=== PATIENT | female | born 1985 | race African-American/Black ===

== ENCOUNTER 2016-07-31 18:16 | Emergency (ER) | payer SELFPAY ==
[~2016-07-31] VITALS: Ht 175.3 cm; Wt 100.0 kg
[~2016-07-31 18:16] MED LIST: BACT800T5 PO; CEPH500C3 PO; IBUP800T23 PO
[2016-07-31 18:17] VITALS: BP 149/85; PULSE 100; RESP 20; TEMP 98.3; O2SAT 100
--- NOTE | 2016-07-31 19:22 | PD ---
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 Patient states that it stopped 2 days ago but began again today. She states she is only changing her pad 2-3 times a day but states that it leaks and it is heavy absorbent. Next abdominal pain or cramping. No vaginal discharge. Denies any chance of . No recent illnesses, fever, chills. No other symptoms to report. PFSH Past Medical History Medical History: Denies Significant Hx Diminished Hearing: No ?: Not LMP: [id number] Past Surgical History Surgical History: No Previous Surgery Social History Alcohol Use: Yes (occ) Tobacco Use: No Substance Use: No Allergies-Medications (Allergen,Severity, Reaction): Coded Allergies: No Known Allergies (Unverified , 07/31/16) Reported Meds & Prescriptions Reported Meds & Active Scripts Active No Active Prescriptions or Reported Medications Review of Systems Except as stated in HPI: all other systems reviewed are Neg Physical Exam Narrative GENERAL: Well-nourished female patient, in no acute distress SKIN: Warm and dry. HEAD: Atraumatic. Normocephalic. EYES: Pupils equal and round. No scleral icterus. No injection or drainage. ENT: No nasal bleeding or discharge. Mucous membranes pink and moist. NECK: Trachea midline. No JVD. CARDIOVASCULAR: Regular rate and rhythm. No murmur appreciated. RESPIRATORY: No accessory muscle use. Clear to auscultation. Breath sounds equal bilaterally. GASTROINTESTINAL: Abdomen soft, non-tender, nondistended. Hepatic and splenic margins not palpable. GENITOURINARY: Normal external genitalia without lesions or erythema. Vaginal vault with dark brown-red drainage. Cervical os was closed without drainage. No cervical motion tenderness. Uterus nontender and nonenlarged. Bilateral adnexa nontender without masses. MUSCULOSKELETAL: No obvious deformities. No clubbing. No cyanosis. No edema. NEUROLOGICAL: Awake and alert. No obvious cranial nerve deficits. Motor grossly within normal limits. Normal speech. PSYCHIATRIC: Appropriate mood and affect; insight and judgment normal. Data Data Last Documented VS Vital Signs Date Time Temp Pulse Resp B/P Pulse Ox O2 Delivery O2 Flow Rate FiO2 07/31/16 18:17 98.3 100 20 149/85 100 Room Air Orders Urinalysis - C+S If Indicated (07/31/16 19:35) Gc And Chlamydia Pcr (07/31/16 19:35) Complete Blood Count With Diff (07/31/16 19:35) Basic Metabolic Panel (Bmp) (07/31/16 19:35) Coag Profile (07/31/16 19:35) Wet Prep Profile (07/31/16 19:35) Labs Laboratory Tests Test 07/31/16 07/31/16 19:55 20:15 White Blood Count 8.1 TH/MM3 Red Blood Count 4.69 MIL/MM3 Hemoglobin 13.5 GM/DL Hematocrit 39.8 % Mean Corpuscular Volume 84.7 FL Mean Corpuscular Hemoglobin 28.8 PG Mean Corpuscular Hemoglobin 34.0 % Concent Red Cell Distribution Width 13.1 % Platelet Count 302 TH/MM3 Mean Platelet Volume 8.5 FL Neutrophils (%) (Auto) 56.9 % Lymphocytes (%) (Auto) 34.2 % Monocytes (%) (Auto) 7.2 % Eosinophils (%) (Auto) 1.1 % Basophils (%) (Auto) 0.6 % Neutrophils # (Auto) 4.6 TH/MM3 Lymphocytes # (Auto) 2.8 TH/MM3 Monocytes # (Auto) 0.6 TH/MM3 Eosinophils # (Auto) 0.1 TH/MM3 Basophils # (Auto) 0.0 TH/MM3 CBC Comment DIFF FINAL Differential Comment Prothrombin Time 11.3 SEC Prothromb Time International 1.0 RATIO Ratio Activated Partial 28.0 SEC Thromboplast Time Sodium Level 139 MEQ/L Potassium Level 3.5 MEQ/L Chloride Level 104 MEQ/L Carbon Dioxide Level 28.2 MEQ/L Anion Gap 7 MEQ/L Blood Urea Nitrogen 10 MG/DL Creatinine 0.92 MG/DL Estimat Glomerular Filtration 85 ML/MIN Rate Random Glucose 83 MG/DL Calcium Level 8.9 MG/DL Urine Color DARK-YELLOW Urine Turbidity TURBID Urine pH 5.5 Urine Specific [place] 1.031 Urine Protein 100 mg/dL Urine Glucose (UA) NEG mg/dL Urine Ketones NEG mg/dL Urine Occult Blood LARGE Urine Nitrite NEG Urine Bilirubin NEG Urine Urobilinogen LESS THAN 2.0 MG/DL Urine Leukocyte Esterase NEG Urine RBC /hpf Urine Squamous Epithelial 13 /hpf Cells Urine Mucus FEW /lpf Microscopic Urinalysis Comment CULT NOT INDICATED Clue Cells (Wet Prep) NONE SEEN Vaginal Trichomonas (Wet Prep) NONE SEEN Vaginal Yeast (Wet Prep) NONE SEEN MDM Medical Decision Making Medical Screen Exam Complete: Yes Emergency Medical Condition: Yes Medical Record Reviewed: Yes Differential Diagnosis Dysmenorrhea versus menorrhagia versus anemia versus symptomatic anemia versus electrolyte abnormality versus hypocoagulability Narrative Course 31-year-old female presents to the emergency for evaluation of vaginal bleeding. Patient appears well and without distress. Her vital signs are stable. She does have lead in the vaginal vault with no CMT or pelvic pain. CBC and BMP are without acute concern. Wet prep is negative. Urinalysis is with the 100 proteinuria, large occult blood, innumerable RBC, mucus. This is likely from her vaginal bleeding. Patient is encouraged to seek PONY ROUGHER evaluation. She agrees to return immediately with any acute worsening of symptoms. 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
[2016-07-31 20:42] LABS: BLOOD, URINE LARGE (NEG); COMMENT (UR) CULT NOT INDICATED; CULTURE IF INDICATED CULT NOT INDICATED; GLUCOSE,URINE NEG (NEG); KETONE, URINE NEG (NEG); MUCUS URINE FEW /lpf (OCC); NITRITE,URINE NEG (NEG); PH, URINE 5.5 (5.0-8.5); SQUAMOUS EPITHELIAL CELL URINE 13 /hpf (0-5)
[2016-07-31 20:42] LABS: AUTOMATED NEUTROPHIL # 4.6 TH/MM3 (1.8-7.7); BASOPHIL % 0.6 % (0.0-2.0); EOSINOPHIL # 0.1 TH/MM3 (0-0.4); EOSINOPHIL % 1.1 % (0.0-4.0); HEMATOCRIT 39.8 % (35.0-46.0); HEMO FLAGS DIFF FINAL; LYMPH % 34.2 % (9.0-44.0); LYMPHOCYTE # 2.8 TH/MM3 (1.0-4.8); MEAN CELL VOLUME 84.7 FL (80.0-100.0); MEAN CORPUSCULAR HEMOGLOBIN 28.8 PG (27.0-34.0); MONO % 7.2 % (0.0-8.0); NEUT % 56.9 % (16.0-70.0); PLATELET COUNT 302 TH/MM3 (150-450); PROTHROMBIN TIME - PATIENT 11.3 SEC (9.8-11.6); RED BLOOD COUNT 4.69 MIL/MM3 (4.00-5.30); RED CELL DISTRIBUTION WIDTH 13.1 % (11.6-17.2); WHITE BLOOD COUNT 8.1 TH/MM3 (4.0-11.0)
[2016-07-31 20:45] LABS: URINE COLOR DARK-YELLOW (YELLW/STRAW)
[2016-07-31 20:56] LABS: BICARBONATE 28.2 MEQ/L (21.0-32.0); POTASSIUM 3.5 MEQ/L (3.5-5.1)
[2016-07-31 23:03] LABS: CHLAMYDIA PCR NOT DETECTED (NOT DETECT); NEISSERIA PCR NOT DETECTED (NOT DETECT)
== END 2016-07-31 22:19 | disposition home or self-care (01) ==
LOC: NEPB 18:16
DX: N93.9 Abnormal uterine and vaginal bleeding, unspecified (principal)
CPT/HCPCS: 80048; 81001; 85025; 85610; 85730; 87210; 87491; 87591; 99283

== ENCOUNTER 2016-08-24 12:11 | Emergency (ER) | payer SELFPAY ==
[~2016-08-24] VITALS: Ht 175.3 cm; Wt 119.7 kg
[2016-08-24 12:13] VITALS: BP 142/89; PULSE 104; RESP 20; TEMP 97.7; O2SAT 99
[2016-08-24] MEDS ORDERED: IBUP800T23 PO (13:57)
[2016-08-24] MEDS ORDERED: CEPH-460 PO (13:57)
[2016-08-24] MEDS ORDERED: BACT800T5 PO (13:57)
--- NOTE | 2016-08-24 13:58 | PD ---
HPI Chief Complaint: Skin Problem Time Seen by Provider: 13:56 Travel History International Travel<30 days: No Contact w/Intl Traveler<30days: No Traveled to known affect area: No History of Present Illness HPI 31-year-old female presents to the emergency department complaining of a lump to her left posterior neck 2 days. She has had a similar lump like this before and was treated with antibiotics which helped and it went away. She denies fever, chills, nausea, vomiting. Denies upper respiratory symptoms. Has not taken any medications or tried any treatments to alleviate her symptoms. No known allergies. No other modified factors or associated signs and symptoms. PFSH Past Medical History Diminished Hearing: No ?: Unknown LMP: IRREGULAR 06/2016 Social History Alcohol Use: Yes (occ) Tobacco Use: No Substance Use: No Allergies-Medications (Allergen,Severity, Reaction): Coded Allergies: No Known Allergies (Unverified , 08/24/16) Reported Meds & Prescriptions Reported Meds & Active Scripts Active Ibuprofen 800 Mg Tab 800 Mg PO Q6HR PRN Bactrim DS (Sulfamethoxazole-Trimethoprim) 800-160 Mg Tab 1 Tab PO BID 10 Days Keflex (Cephalexin) 500 Mg Cap 500 Mg PO Q6H 10 Days Review of Systems Except as stated in HPI: all other systems reviewed are Neg Physical Exam Narrative GENERAL: Well-nourished, well-developed patient, in no acute distress; afebrile , nontoxic-appearing SKIN: There is an indurated area to the left posterior neck which measures about 2-3 cm in diameter. It is nonfluctuant and there is no pointing or drainage. There is no inflammation, erythema noted to the area. No lymphangitis.. HEAD: Atraumatic. Normocephalic. EYES: Pupils equal and round. No scleral icterus. No injection or drainage. ENT: Mucosa pink and moist. Airway patent. NECK: Trachea midline. CARDIOVASCULAR: Regular rate. RESPIRATORY: No accessory muscle use. GASTROINTESTINAL: Obese. MUSCULOSKELETAL: No obvious deformities. No clubbing. No cyanosis. No edema. NEUROLOGICAL: Awake and alert. Oriented 3. No obvious cranial nerve deficits. Motor grossly within normal limits. Normal speech. PSYCHIATRIC: Appropriate mood and affect; insight and judgment normal. Data Data Last Documented VS Vital Signs Date Time Temp Pulse Resp B/P Pulse Ox O2 Delivery O2 Flow Rate FiO2 08/24/16 12:13 97.7 104 20 142/89 99 Room Air MDM Medical Decision Making Medical Screen Exam Complete: Yes Emergency Medical Condition: Yes Medical Record Reviewed: Yes Differential Diagnosis Abscess, cyst, folliculitis Narrative Course This is a 31-year-old female which I saw back in August 2015 for the same complaint. At that time the abscess was nonfluctuant and I did attempt to drain it with no success. The abscess to the left posterior neck is nonfluctuant and there is no pointing or drainage. There is no erythema or warmth to touch to the area of the abscess. The patient said after being treated with antibiotics last time the abscess did subside and has not come back until now. She is afebrile and nontoxic-appearing. She denies fever, chills, nausea, vomiting. Heart rate recheck on physical exam is approximately 80-90 bpm. Keflex, ibuprofen, Bactrim prescribed for home. Instructed patient to return for incision and drainage if the abscess worsens. Patient verbalizes understanding and agreement with treatment plan. Patient is medically cleared and stable for discharge. Discussed reasons to return to the emergency department. Instructed patient to follow up with primary care provider. Patient agrees with treatment plan. The patients vital signs are stable and the patient is stable for outpatient follow-up and treatment. Patient discharged home, stable and in no acute distress. Diagnosis Primary Impression: Abscess of neck Referrals: [facility] Kn[facility] [employer] Operator Primary Care Physician Patient Instructions: Abscess (ED), Abscess Follow-up (ED), General Instructions Departure Forms: Tests/Procedures, Work Release Enter return to work date: Aug 25, 2016 Additional Instructions: Complete full course of antibiotics Warm compresses to the affected area Keep area clean and dry Ibuprofen or Tylenol as directed and as needed for pain and inflammation Follow-up with primary care provider Follow-up with dermatology Return to emergency department immediately with worsening of symptoms Med/Other Pt SpecificInfo: Prescription(s) given Scripts Ibuprofen 800 Mg [id number] Mg PO Q6HR PRN (PAIN) #30 TAB Ref 0 Prov:Alejandra Lambert BUSINESS MAIL ENTRY CLERK 08/24/16 Sulfamethoxazole-Trimethoprim (Bactrim DS)800-160 Mg Tab1 Tab PO BID 10 Days Ref 0 Prov:Alejandra Lambert BUSINESS MAIL ENTRY CLERK 08/24/16 Cephalexin (Keflex)500 Mg [id number] Mg PO Q6H 10 Days Ref 0 Prov:Alejandra Lambert 08/24/16 Disposition: 01 DISCHARGE HOME Condition: Stable Alejandra Lambert Aug 24, 2016 13:58
== END 2016-08-24 14:10 | disposition home or self-care (01) ==
LOC: NETRI 12:11
DX: L02.11 Cutaneous abscess of neck (principal)
CPT/HCPCS: 99282

== ENCOUNTER 2016-09-04 20:01 | Emergency (ER) | payer SELFPAY ==
[~2016-09-04] VITALS: Ht 175.3 cm; Wt 119.9 kg
[~2016-09-04 20:01] MED LIST changes: +CEPH-460 PO; -CEPH500C3 PO
[2016-09-04 20:03] VITALS: BP 110/77; PULSE 94; RESP 14; TEMP 99.2; O2SAT 98
[2016-09-04] MEDS ORDERED: HYDR-3533 PO (21:07)
[2016-09-04] MEDS ORDERED: BACT800T5 PO (21:07)
[2016-09-04] MEDS ORDERED: CEPH-460 PO (21:07)
--- NOTE | 2016-09-04 21:11 | PD ---
HPI Chief Complaint: Lump, Cyst, Hernia Time Seen by Provider: 21:07 Travel History International Travel<30 days: No Contact w/Intl Traveler<30days: No Traveled to known affect area: No History of Present Illness HPI 31-year-old black female presents emergency Department with worsening abscess to the back of her neck over the last 2-3 weeks. She states that she was given antibiotics earlier which did not seem to improve her symptoms. She states that she has had a prior abscess with drainage the past. She denies any fever chills. No drainage. No nausea vomiting. Symptoms are moderate no alleviating factors. PFSH Past Medical History Asthma: Yes Diminished Hearing: No ?: Not LMP: 1 WK AGO Social History Alcohol Use: Yes (occ) Tobacco Use: No Substance Use: No Allergies-Medications (Allergen,Severity, Reaction): Coded Allergies: No Known Allergies (Unverified , 09/04/16) Reported Meds & Prescriptions Reported Meds & Active Scripts Active Ibuprofen 800 Mg Tab 800 Mg PO Q6HR PRN Bactrim DS (Sulfamethoxazole-Trimethoprim) 800-160 Mg Tab 1 Tab PO BID 10 Days Keflex (Cephalexin) 500 Mg Cap 500 Mg PO Q6H 10 Days Review of Systems Except as stated in HPI: all other systems reviewed are Neg Physical Exam Narrative GENERAL: This is a well-nourished, well-developed patient, in no apparent distress. SKIN: No rashes, ecchymoses or lesions. Warm and dry. Patient has a large abscess to the back of the neck at the base of the scalp. There is a large area of induration and thickening with a 3 x 3 area central fluctuance. Positive tenderness, erythema and mild warmth. HEAD: Atraumatic. Normocephalic. EYES: PERRL, EOMI, no discharge or injection. No scleral icterus. EARS: Clear NOSE: Nasal turbinates appear normal. THROAT: Mucosa pink and moist. Airway patent. NECK: Trachea midline. supple, moves head freely. LUNGS: Clear to auscultation. CV: Regular in rhythm. ABDOMEN: Soft nontender. EXT: No clubbing cyanosis or edema. Data Data Last Documented VS Vital Signs Date Time Temp Pulse Resp B/P Pulse Ox O2 Delivery O2 Flow Rate FiO2 09/04/16 20:03 99.2 94 14 110/77 98 Room Air MDM Medical Decision Making Medical Screen Exam Complete: Yes Emergency Medical Condition: Yes Medical Record Reviewed: Yes Differential Diagnosis MDM: High Differential diagnoses: Abscess, folliculitis, cellulitis, lymphangitis, abrasion, contact dermatitis Narrative Course An incision and drainage has been performed. Patient's given Lortab 5 milligrams, Keflex 500 mg, and Bactrim DS by mouth. This is a abscess with incision and drainage Diagnosis Primary Impression: Abscess of neck Additional Impression: Encounter for incision and drainage procedure Patient Instructions: Narcotic given in the ED, General Instructions Additional Instructions: Rest. Elevation. keep clean and dry. remove the packing in two days. Daily wound care with soap, water and Neosporin. Three Advil every 6 hours. Keflex, Septra DS, and Lortab. Follow-up with a primary care doctor in one week. Return to the ER for any problems. Med/Other Pt SpecificInfo: Prescription(s) given Scripts Hydrocodone-Acetaminophen (Lortab)5-325 Mg Tab1 Tab PO Q4H PRN (PAIN) #20 TAB Prov:Jose Tilley MD 09/04/16 Sulfamethoxazole-Trimethoprim (Bactrim DS)800-160 Mg Tab1 Tab PO BID 10 Days Ref 0 Prov:Jose Tilley MD 09/04/16 Cephalexin (Keflex)500 Mg [id number] Mg PO Q6H 10 Days Ref 0 Prov:Jose Tilley MD 09/04/16 Disposition: 01 DISCHARGE HOME Condition: Stable Thom Cullen Sep 04, 2016 21:11
[2016-09-04] MEDS ORDERED: CEPHALEXIN MONOHYDRATE 500 MG CAP PO ONE (21:15)
[2016-09-04] MEDS ORDERED: SULFAMETHOXAZOLE-TRIMETHOPRIM DS 800-160 MG TAB PO ONE (21:15)
[2016-09-04] MEDS ORDERED: ACETAMINOPHEN/HYDROcodone 325 MG/5 MG TAB PO ONE (21:15)
== END 2016-09-04 21:35 | disposition home or self-care (01) ==
LOC: NEPK 20:01
DX: L02.212 Cutaneous abscess of back [any part, except buttock and flank] (principal); J45.909 Unspecified asthma, uncomplicated
CPT/HCPCS: 10061

== ENCOUNTER 2017-05-29 16:25 | Emergency (ER) | payer SELFPAY ==
[~2017-05-29] VITALS: Ht 177.8 cm; Wt 123.1 kg
[~2017-05-29 16:25] MED LIST changes: +HYDR-3533 PO; +IBUP1TAB7 PO; -IBUP800T23 PO
[2017-05-29 16:27] VITALS: BP 157/83; PULSE 102; RESP 14; TEMP 98.2; O2SAT 99
[2017-05-29] MEDS ORDERED: IBUP1TAB7 PO (16:56)
[2017-05-29] MEDS ORDERED: CEPH-460 PO (16:56)
[2017-05-29] MEDS ORDERED: BACT800T5 PO (16:56)
--- NOTE | 2017-05-29 16:57 | PD ---
HPI Chief Complaint: Back/ Neck Pain or Injury Time Seen by Provider: 16:42 Travel History International Travel<30 days: No Contact w/Intl Traveler<30days: No Traveled to known affect area: No History of Present Illness HPI 32-year-old female presents to the emergency department complaint of an abscess to the back of her neck 2 days. She has history of an abscess to the back of her neck in the past with incision and drainage. She denies fever, vomiting. Has not taken any medications for any treatment to alleviate her symptoms. Rates pain 9/10. Describes it as a pressure. No known aggravating or relieving factors. No known allergies. No primary care provider. Denies significant past medical history. Has no other medical complaints. No other modifying factors or associated signs and symptoms. PFSH Past Medical History Medical History: Denies Significant Hx Asthma: Yes Diminished Hearing: No Tetanus Vaccination: < 5 Years ?: Unknown LMP: 10/2016 Past Surgical History Surgical History: No Previous Surgery Social History Alcohol Use: Yes (occ) Tobacco Use: No Substance Use: No Allergies-Medications (Allergen,Severity, Reaction): Coded Allergies: No Known Allergies (Unverified Adverse Reaction, Unknown, 05/29/17) Reported Meds & Prescriptions Reported Meds & Active Scripts Active Ibuprofen 800 Mg Tab 800 Mg PO Q6HR PRN Bactrim DS (Sulfamethoxazole-Trimethoprim) 800-160 Mg Tab 1 Tab PO BID 10 Days Keflex (Cephalexin) 500 Mg Cap 500 Mg PO Q6H 10 Days Review of Systems Except as stated in HPI: all other systems reviewed are Neg Physical Exam Narrative GENERAL: Well-nourished, well-developed black female patient, in no acute distress; afebrile, nontoxic-appearing SKIN: There is an indurated area to the posterior base of scalp/neck which measures about 1.5 cm in diameter. It is nonfluctuant and there is no pointing or drainage. There is no zone of inflammation around it and no lymphadenopathy palpated. HEAD: Atraumatic. Normocephalic. EYES: Pupils equal and round. No scleral icterus. No injection or drainage. ENT: Mucosa pink and moist. Airway patent. NECK: Trachea midline. CARDIOVASCULAR: Regular rate. RESPIRATORY: No accessory muscle use. GASTROINTESTINAL: Obese. MUSCULOSKELETAL: No obvious deformities. No clubbing. No cyanosis. No edema. NEUROLOGICAL: Awake and alert. Oriented 3. No obvious cranial nerve deficits. Motor grossly within normal limits. Normal speech. PSYCHIATRIC: Appropriate mood and affect; insight and judgment normal. Data Data Last Documented VS Vital Signs Date Time Temp Pulse Resp B/P (MAP) Pulse Ox O2 Delivery O2 Flow Rate FiO2 05/29/17 16:27 98.2 102 14 157/83 (107) 99 Orders Orders Ed Discharge Order (05/29/17 16:57) Ibuprofen (Motrin) (05/29/17 17:00) MDM Medical Decision Making Medical Screen Exam Complete: Yes Emergency Medical Condition: Yes Medical Record Reviewed: Yes Differential Diagnosis Abscess of neck, folliculitis, cellulitis Narrative Course 32-year-old female with an abscess of the posterior neck. I reviewed her medical record and she has history of abscess to the same area. Actually seen this patient in the past with the same complaint. The abscesses non-drainable at this time. Is not ready for incision and drainage. It is nonfluctuant. Ibuprofen administered in the ER. Ibuprofen, Keflex, Bactrim prescribed for home. Instructed patient to return for incision and drainage if needed. Instructed patient to follow up with primary care provider. Patient verbalizes understanding and agreement with treatment plan. Patient is medically cleared and stable for discharge. Discussed reasons to return to the emergency department. Patient agrees with treatment plan. The patients vital signs are stable and the patient is stable for outpatient follow-up and treatment. Patient discharged home, stable and in no acute distress. Diagnosis Primary Impression: Abscess of neck Referrals: [facility] Primary Care Physician Patient Instructions: Abscess (ED), Abscess Follow-up (ED), General Instructions Additional Instructions: Complete full course of antibiotics Warm compresses to the affected area Keep area clean and dry Ibuprofen or Tylenol as directed and as needed for pain and inflammation Return to the emergency department for incision and drainage if needed, despite antibiotic therapy Follow-up with primary care provider Return to emergency department immediately with worsening of symptoms Med/Other Pt SpecificInfo: Prescription(s) given Scripts Ibuprofen (Ibuprofen) 800 Mg Tab 800 MG PO Q6HR Y for PAIN, #30 TAB 0 Refills Prov: Alejandra Lambert EDGE BASTER 05/29/17 Sulfamethoxazole-Trimethoprim (Bactrim DS) 800-160 Mg Tab 1 TAB PO BID for Infection for 10 Days, #20 TAB 0 Refills Prov: Alejandra Lambert 05/29/17 Cephalexin (Keflex) 500 Mg Cap 500 MG PO Q6H for Infection for 10 Days, #40 CAP 0 Refills Prov: Alejandra Lambert 05/29/17 Disposition: 01 DISCHARGE HOME Condition: Stable Alejandra Lambert May 29, 2017 16:57
[2017-05-29] MEDS ORDERED: IBUPROFEN 800 MG TAB PO ONE (17:00)
== END 2017-05-29 17:04 | disposition home or self-care (01) ==
LOC: NEPD 16:25
DX: L02.11 Cutaneous abscess of neck (principal); J45.909 Unspecified asthma, uncomplicated
CPT/HCPCS: 99284

== ENCOUNTER 2017-06-08 11:58 | Emergency (ER) | payer SELFPAY ==
[2017-06-08 11:58] VITALS: BP 153/70; PULSE 72; RESP 18; TEMP 98.7; O2SAT 100
[~2017-06-08 11:58] MED LIST changes: -HYDR-3533 PO
[2017-06-08] MEDS ORDERED: CEPH-460 PO (13:51)
[2017-06-08] MEDS ORDERED: BACT800T5 PO (13:51)
--- NOTE | 2017-06-08 13:54 | PD ---
HPI Chief Complaint: Skin Problem Time Seen by Provider: 13:08 Travel History International Travel<30 days: No Contact w/Intl Traveler<30days: No Traveled to known affect area: No History of Present Illness HPI 32-year-old female here for recheck of abscess to her posterior neck. Patient denies fever or chills. She was seen and treated with antibiotics on an . She reports the area has gotten larger and softer since. She denies increasing pain. Denies neck stiffness or neck pain. The area is painful to touch. Relieved by [id number] Tylenol. Symptom severity is moderate. PFSH Past Medical History Asthma: Yes Diminished Hearing: No ?: Unknown LMP: October, reports a hormone problem. Sexually active. Social History Alcohol Use: Yes (occ) Tobacco Use: No Substance Use: No Allergies-Medications (Allergen,Severity, Reaction): Coded Allergies: No Known Allergies (Unverified Adverse Reaction, Unknown, 06/08/17) Reported Meds & Prescriptions Reported Meds & Active Scripts Active Bactrim DS (Sulfamethoxazole-Trimethoprim) 800-160 Mg Tab 1 Tab PO BID 10 Days Keflex (Cephalexin) 500 Mg Cap 500 Mg PO Q6H 10 Days Review of Systems Except as stated in HPI: all other systems reviewed are Neg General / Constitutional: No: Fever Physical Exam Narrative GENERAL: Alert and well appearing SKIN: Warm and dry. 2 cm fluctuant abscess to the left posterior neck. No surrounding cellulitis HEAD: Normocephalic. EYES: No injection or drainage. NECK: Supple, trachea midline. No lymphadenopathy. No meningismus. CARDIOVASCULAR: Regular rate and rhythm without murmurs, gallops, or rubs. RESPIRATORY: Breath sounds equal bilaterally. No accessory muscle use. Data Data Last Documented VS Vital Signs Date Time Temp Pulse Resp B/P (MAP) Pulse Ox O2 Delivery O2 Flow Rate FiO2 06/08/17 11:58 98.7 72 18 153/70 (97) 100 MDM Medical Decision Making Medical Screen Exam Complete: Yes Emergency Medical Condition: Yes Differential Diagnosis Abscess, cellulitis, wound recheck Narrative Course 32-year-old female here for recheck of abscess to her posterior neck. Patient denies fever or chills. The area was incised and drained. Patient tolerated procedure well. She will be put on 7 days more of antibiotics given the size of the abscess Procedures Procedure Narrative INCISION AND DRAINAGE OF ABSCESS: The area was prepped and was sterilely draped. A subcutaneous wheal of 1 % Xylocaine with a total number [1] mL was used to anesthetize the area properly. A number 11 scalpel was used to make a 0.5 -cm incision across the area of the abscess. The abscess was drained, complex loculations were broken down, and irrigated with normal saline. Sterile dressing applied. Diagnosis Primary Impression: Abscess of neck Referrals: [facility] Additional Instructions: Antibiotics as prescribed. Watch the area daily with soap and warm water. Return if he developed new or worsening symptoms Scripts Sulfamethoxazole-Trimethoprim (Bactrim DS) 800-160 Mg Tab 1 TAB PO BID for Infection for 10 Days, #14 TAB 0 Refills Prov: Jailene 06/08/17 Cephalexin (Keflex) 500 Mg Cap 500 MG PO Q6H for Infection for 10 Days, #28 CAP 0 Refills Prov: Jailene 06/08/17 Disposition: 01 DISCHARGE HOME Condition: Stable Jailene Sun Jun 08, 2017 13:54
== END 2017-06-08 14:41 | disposition home or self-care (01) ==
LOC: NEPK 11:58
DX: L02.11 Cutaneous abscess of neck (principal)
CPT/HCPCS: 10061

== ENCOUNTER 2017-08-07 12:59 | Emergency (ER) | payer SELFPAY ==
[~2017-08-07] VITALS: Ht 175.3 cm; Wt 90.0 kg
[~2017-08-07 12:59] MED LIST changes: -IBUP1TAB7 PO
[2017-08-07 13:09] VITALS: BP 130/84; PULSE 97; RESP 14; TEMP 99; O2SAT 99
[2017-08-07] MEDS ORDERED: CLIN150C14 PO (14:05)
[2017-08-07] MEDS ORDERED: NAPR500 PO (14:05)
[2017-08-07] MEDS ORDERED: BACT800T5 PO (14:05)
--- NOTE | 2017-08-07 14:09 | PD ---
HPI Chief Complaint: Skin Problem Time Seen by Provider: 13:34 Travel History International Travel<30 days: No Contact w/Intl Traveler<30days: No Traveled to known affect area: No History of Present Illness HPI Patient comes emergency department complaining of possible abscess to the posterior neck that began 2 days ago. Patient states had similar symptoms when previously diagnosed with an abscess. Patient reports having it lanced one time. Patient feeling a burning sensation across her posterior neck is worse with certain movement. Denies radiation of the pain. Patient denies anything making it better. Denies any fevers or known injury. Denies loss change of bowel or bladder. Denies . Patient reports she is visiting from [place] goes back in 1 month. Severity mild. PFSH Past Medical History Asthma: Yes Diminished Hearing: No ?: Unknown LMP: 6 Months, does not have regular cycle Past Surgical History Surgical History: No Previous Surgery Social History Alcohol Use: Yes ([facility]) Tobacco Use: No Substance Use: No Allergies-Medications (Allergen,Severity, Reaction): Coded Allergies: No Known Allergies (Unverified Adverse Reaction, Unknown, 06/08/17) Reported Meds & Prescriptions Reported Meds & Active Scripts Active Naprosyn (Naproxen) 500 Mg Tab 500 Mg PO Q12HR PRN Clindamycin (Clindamycin HCl) 150 Mg Cap 2 Cap PO Q6H 10 Days Bactrim DS (Sulfamethoxazole-Trimethoprim) 800-160 Mg Tab 1 Tab PO BID 10 Days Review of Systems Except as stated in HPI: all other systems reviewed are Neg Physical Exam Narrative GENERAL: Well-developed, overly nourished, in no acute distress, and non-ill appearing. SKIN: Patient reports tenderness to palpation posterior neck over the skin for mildly indurated. No fluctuation or crepitus. No drainage. HEAD: Atraumatic. Normocephalic. EYES: Pupils equal and round. EOMI. No scleral icterus. No injection or drainage. ENT: No nasal bleeding or discharge. Mucous membranes pink and moist. NECK: Trachea midline. No cervical lymphadenopathy. Supple. No nuclear rigidity. RESPIRATORY: No accessory muscle use. No respiratory distress. MUSCULOSKELETAL: No obvious deformities. No clubbing. No cyanosis. No edema. Full range of motion. NEUROLOGICAL: Awake and alert. No obvious cranial nerve deficits. Motor grossly within normal limits. Normal speech. PSYCHIATRIC: Appropriate mood and affect; insight and judgment normal. Data Data Last Documented VS Vital Signs Date Time Temp Pulse Resp B/P (MAP) Pulse Ox O2 Delivery O2 Flow Rate FiO2 08/07/17 13:09 99.0 97 14 130/84 (99) 99 Orders Orders Ed Discharge Order (08/07/17 14:09) MDM Medical Decision Making Medical Screen Exam Complete: Yes Emergency Medical Condition: Yes Differential Diagnosis Abscess, cellulitis, folliculitis, gangrene Narrative Course The patient has no evidence of obvious abscess at this time. The patient will be discharged on antibiotics for cellulitis with possible early/immature abscess. Clinical suspicion, diagnosis and care management was discussed. The patient was given signs and symptoms warnings for worsening infection, such as spreading of redness, increasing pain, and/or swelling, associated heat, pus or fever and instructed to return immediately if these signs or symptoms worsen. The patient is to return in 2 days for recheck for maturity. Sooner if worsens or as needed. The patient agrees with plan. Patient in no obvious distress upon re-evaluation. Patient was asked if they wanted to speak to my attending, which the patient did not wish to do at this time. Any questions/concerns in reference to patient diagnosis/condition discussed and clarified prior to patient's discharge. Reinforced sheer importance of close follow up with patient's primary physician or primary care clinic or to return here in 2 days for recheck. Instructed patient to return to ED immediately, if symptoms return/worsen. Patient showed understanding of above instructions. Further instructions and recommendations were detailed in discharge paperwork. Patient ambulated without difficulty out of ED at discharge. Diagnosis Primary Impression: Cellulitis Qualified Codes: L03.221 - Cellulitis of neck Referrals: [facility] Patient Instructions: Cellulitis (ED), General Instructions Additional Instructions: Follow-up with your primary care physician or return here in 2 days for recheck. Follow-up with level vial setter for possible biopsy. Take all medication as prescribed. Apply warm compresses to affected area multiple times throughout the day to facilitate softening. Return to the emergency department sooner if symptoms get worse. Med/Other Pt SpecificInfo: Prescription(s) given Scripts Naproxen (Naprosyn) 500 Mg Tab 500 MG PO Q12HR Y for PAIN SCALE 1 TO 10, #14 TAB 0 Refills Prov: Arlin Henderson MD 08/07/17 Clindamycin (Clindamycin) 150 Mg Cap 2 CAP PO Q6H for Infection for 10 Days, #80 CAP 0 Refills Prov: Arlin Henderson MD 08/07/17 Sulfamethoxazole-Trimethoprim (Bactrim DS) 800-160 Mg Tab 1 TAB PO BID for Infection for 10 Days, #14 TAB 0 Refills Prov: Arlin Henderson MD 08/07/17 Disposition: 01 DISCHARGE HOME Condition: Stable Hans Jeter Aug 07, 2017 14:09
== END 2017-08-07 14:22 | disposition home or self-care (01) ==
LOC: NEPD 12:59
DX: L03.221 Cellulitis of neck (principal); J45.909 Unspecified asthma, uncomplicated
CPT/HCPCS: 99283

== ENCOUNTER 2017-08-12 11:55 | Emergency (ER) | payer SELFPAY ==
[~2017-08-12] VITALS: Ht 170.2 cm; Wt 90.0 kg
[~2017-08-12 11:55] MED LIST changes: -CEPH-460 PO; +CLIN150C14 PO; +NAPR500 PO
[2017-08-12 11:58] VITALS: BP 141/67; PULSE 85; RESP 16; TEMP 98; O2SAT 100
--- NOTE | 2017-08-12 13:11 | PD ---
HPI Chief Complaint: Skin Problem Time Seen by Provider: 12:30 Travel History International Travel<30 days: No Contact w/Intl Traveler<30days: No Traveled to known affect area: No History of Present Illness HPI 32-year-old female presents to the ED for evaluation of 8/10 posterior neck pain. Gradual onset. Patient states that she's had several abscesses on the back of her neck and thinks that this is the problem today. She denies fever, chills, nausea, vomiting, headaches, dizziness, limitations to range of motion of the neck, radicular symptoms. She is currently taking Bactrim and clindamycin. Not yet followed up with a choir singer. PFSH Past Medical History Asthma: Yes Diminished Hearing: No Social History Alcohol Use: Yes (occ) Tobacco Use: No Substance Use: No Allergies-Medications (Allergen,Severity, Reaction): Coded Allergies: No Known Allergies (Unverified Adverse Reaction, Unknown, 08/12/17) Reported Meds & Prescriptions Reported Meds & Active Scripts Active Naprosyn (Naproxen) 500 Mg Tab 500 Mg PO Q12HR PRN Clindamycin (Clindamycin HCl) 150 Mg Cap 2 Cap PO Q6H 10 Days Bactrim DS (Sulfamethoxazole-Trimethoprim) 800-160 Mg Tab 1 Tab PO BID 10 Days Review of Systems Except as stated in HPI: all other systems reviewed are Neg Physical Exam Narrative GENERAL: Well-nourished, well-developed -[place] female in no acute distress. SKIN: Focused skin assessment warm/dry. SKIN: There is an indurated area in the posterior neck which measures about 3 cm in diameter. It is fluctuant but there is no pointing or drainage. There is a zone of inflammation around it but no lymphangitis. HEAD: Normocephalic. EYES: No scleral icterus. No injection or drainage. NECK: Supple, trachea midline. No JVD or lymphadenopathy. CARDIOVASCULAR: Regular rate and rhythm without murmurs, gallops, or rubs. RESPIRATORY: Breath sounds equal bilaterally. No accessory muscle use. GASTROINTESTINAL: Abdomen soft, non-tender, nondistended. MUSCULOSKELETAL: No cyanosis, or edema. BACK: Nontender without obvious deformity. No CVA tenderness. Data Data Last Documented VS Vital Signs Date Time Temp Pulse Resp B/P (MAP) Pulse Ox O2 Delivery O2 Flow Rate FiO2 08/12/17 11:58 98.0 85 16 141/67 (91) 100 [facility] Medical Decision Making Medical Screen Exam Complete: Yes Emergency Medical Condition: Yes Differential Diagnosis Folliculitis versus abscess versus cellulitis versus other Narrative Course 32-year-old female with history of abscess of the posterior neck presents to the ED for evaluation of same. No fevers or chills, nausea vomiting or limitations to range of motion of the neck. Patient's currently taking clindamycin and Bactrim which were prescribed earlier this month. On exam there is a abscess of the neck. I&D was performed. Please see my procedure note for details. Patient instructed to continue with antibiotics, return to the ED in 2 days for wound recheck. I reviewed the patient's record and she's had several problems in this area. She is instructed to follow with a choir singer or general surgeon for possible excision. She is agreeable this care plan. She is stable and discharged home. Procedures Procedure Narrative INCISION AND DRAINAGE OF ABSCESS: The area was prepped and was sterilely draped. A subcutaneous wheal of 1% % Xylocaine with a total number 3 mL was used to anesthetize the area properly. A number 11 scalpel was used to make a 1 -cm incision across the area of the abscess. The abscess was drained, complex loculations were broken down, and irrigated with normal saline. Cultures were obtained. Quarter inch iodoform packing was placed in the wound. Sterile dressing applied. Patient advised to have packing removed in two days. Diagnosis Primary Impression: Abscess of neck Additional Impression: Encounter for incision and drainage procedure Referrals: [facility] Additional Instructions: Keep the wound covered. Return to the ED in 2 days for packing removal and wound evaluation. Continue with antibiotics as previously prescribed. Follow-up with a choir singer. Return to the ED for worsening symptoms or any urgent or emergent medical condition. Disposition: 01 DISCHARGE HOME Condition: Stable Keren Dunn Aug 12, 2017 13:11
[2017-08-12] MEDS ORDERED: LIDOCAINE HCL 1% PF 30 ML VIAL INFIL ONE (13:15)
[2017-08-12] MEDS ORDERED: IBUPROFEN 800 MG TAB PO ONE (13:15)
== END 2017-08-12 13:31 | disposition home or self-care (01) ==
LOC: NEPK 11:55
DX: L02.11 Cutaneous abscess of neck (principal)
CPT/HCPCS: 10061; 86403; 87070; 87185

== ENCOUNTER 2017-10-05 16:57 | Emergency (ER) | payer SELFPAY ==
[~2017-10-05] VITALS: Ht 170.2 cm; Wt 91.0 kg
[2017-10-05 17:13] VITALS: BP 126/83; PULSE 87; RESP 19; TEMP 98.8; O2SAT 100
[2017-10-05] MEDS ORDERED: CLIN150C14 PO (18:02)
[2017-10-05] MEDS ORDERED: BACT800T5 PO (18:02)
--- NOTE | 2017-10-05 18:02 | PD ---
HPI Chief Complaint: Back/ Neck Pain or Injury Time Seen by Provider: 17:46 Travel History International Travel<30 days: No Contact w/Intl Traveler<30days: No Traveled to known affect area: No History of Present Illness HPI 32-year-old female complaining of pain swelling posterior aspect of the neck. Patient states that symptoms started 2 days ago. Patient stated pain sharp pain localized to the posterior aspect the neck. Patient denies any pain radiation. Patient denies any fever chills. Patient denies any injury to the area. Patient has been seen in emergency room several times in the past for same problem. Patient was found to have neck abscess and I&D was done in the past. Cultures were done and positive for mixed abeba. Patient responded well with the clindamycin and Bactrim DS in the past. PFSH Past Medical History Asthma: Yes Diminished Hearing: No ?: Unknown LMP: 09/10/17 Social History Alcohol Use: Yes (occ) Tobacco Use: No Substance Use: No Allergies-Medications (Allergen,Severity, Reaction): Coded Allergies: No Known Allergies (Unverified Adverse Reaction, Unknown, 08/12/17) Reported Meds & Prescriptions Reported Meds & Active Scripts Active Naprosyn (Naproxen) 500 Mg Tab 500 Mg PO Q12HR PRN Clindamycin (Clindamycin HCl) 150 Mg Cap 2 Cap PO Q6H 10 Days Bactrim DS (Sulfamethoxazole-Trimethoprim) 800-160 Mg Tab 1 Tab PO BID 10 Days Review of Systems General / Constitutional: No: Fever Eyes: No: Visual changes HENT: Positive: Neck Pain, No: Headaches Cardiovascular: No: Chest Pain or Discomfort Respiratory: No: Shortness of Breath Gastrointestinal: No: Abdominal Pain Genitourinary: No: Dysuria Musculoskeletal: No: Pain Skin: No Rash Neurologic: No: Weakness Psychiatric: No: Depression Endocrine: No: Polydipsia Hematologic/Lymphatic: No: Easy Bruising Physical Exam Narrative GENERAL: Well-nourished, well-developed patient. SKIN: Focused skin assessment warm/dry. HEAD: Normocephalic. EYES: No scleral icterus. No injection or drainage. NECK: Supple, trachea midline. No JVD or lymphadenopathy. Patient has soft tissue mass with tenderness posterior aspect of the neck. No induration. No discharge. CARDIOVASCULAR: Regular rate and rhythm without murmurs, gallops, or rubs. RESPIRATORY: Breath sounds equal bilaterally. No accessory muscle use. GASTROINTESTINAL: Abdomen soft, non-tender, nondistended. MUSCULOSKELETAL: No cyanosis, or edema. BACK: Nontender without obvious deformity. No CVA tenderness. Data Data Last Documented VS Vital Signs Date Time Temp Pulse Resp B/P (MAP) Pulse Ox O2 Delivery O2 Flow Rate FiO2 10/05/17 17:13 98.8 87 19 126/83 (97) 100 MDM Medical Decision Making Medical Screen Exam Complete: Yes Emergency Medical Condition: Yes Differential Diagnosis Differential diagnoses including cellulitis, abscess. Narrative Course 32-year-old female with painful neck mass. History of recurrent abscess. No evidence of abscess now. Diagnosis Primary Impression: Cellulitis, neck Patient Instructions: General Instructions Additional Instructions: Take medications as directed. Moist compress. Return in 2 days for recheck. Advised patient to follow-up with local surgeon. Med/Other Pt SpecificInfo: Prescription(s) given Scripts Sulfamethoxazole-Trimethoprim (Bactrim DS) 800-160 Mg Tab 1 TAB PO BID for Infection, #20 TAB 0 Refills Prov: Vikas Diez MD 10/05/17 Clindamycin (Clindamycin) 150 Mg Cap 300 MG PO QID for Infection, #80 CAP 0 Refills Prov: Vikas Diez MD 10/05/17 Disposition: 01 DISCHARGE HOME Condition: Stable Vikas Diez MD October 05, 2017 18:02
== END 2017-10-05 18:54 | disposition home or self-care (01) ==
LOC: NEPD 16:57
DX: L03.221 Cellulitis of neck (principal)
CPT/HCPCS: 99283